=== PATIENT | female | born 1980 | race African-American/Black ===

== ENCOUNTER 2021-08-04 23:46 | Emergency (ER) | payer OTHER ==
[2021-08-05 00:05] VITALS: BP 145/88; TEMP 97.7; BMI 36.7
[2021-08-05] MEDS ORDERED: FAMOTIDINE 20 MG TABLET PO ONE (00:17)
[2021-08-05] MEDS ORDERED: MAG HYDROX/AL HYDROX/SIMETH -MYLANTA- ORAL SUSPENSION PO ONE (00:17)
[2021-08-05] MEDS ORDERED: FAMOTIDINE 20 MG TABLET ONE (01:08)
[2021-08-05] MEDS ORDERED: MAG HYDROX/AL HYDROX/SIMETH 30 ML UNIT-DOSE CUP ONE (01:08)
[2021-08-05 01:09] LABS: BASO % 0.2 % (0-2.0); HEMATOCRIT 32.7 % (32.4-45.2); HEMOGLOBIN 10.9 GM/dL (10.7-15.3); LYMPH % 56.8 % (8-40); MCHC 33.4 g/dl (32.0-36.0); MEAN CELL VOLUME 86.8 fl (80-96); MEAN PLT VOLUME 7.7 fl (7.5-11.1); MONO % 10.6 % (3.8-10.2); NEUT % 31.4 % (42.8-82.8); PLATELET COUNT 282 10^3/uL (134-434); RBC 3.77 M/mm3 (3.60-5.2); RDW 15.3 % (11.6-15.6); WHITE BLOOD COUNT 3.7 K/mm3 (4.0-10.0)
[2021-08-05 01:29] LABS: CALCIUM 8.7 mg/dL (8.5-10.1)
[2021-08-05 01:30] LABS: ALBUMIN 3.2 g/dl (3.4-5.0); BLOOD UREA NITROGEN 7.4 mg/dL (7-18)
[2021-08-05 01:33] LABS: CREATININE 0.7 mg/dL (0.55-1.3)
[2021-08-05 01:35] VITALS: PULSE 86
[2021-08-05 01:35] LABS: BILIRUBIN,TOTAL 0.3 mg/dL (0.2-1); TOT PROT 7.4 g/dl (6.4-8.2)
== END 2021-08-05 04:23 | disposition home or self-care (01) ==
LOC: JER 23:46
DX: R07.89 Other chest pain (principal); R00.2 Palpitations
CPT/HCPCS: 36415; 71046-TC-FY; 80053; 84443; 84484; 84703; 85025; 93005; 93010; 99285-25